=== PATIENT | male | born 1950 | race Caucasian/White ===

== ENCOUNTER → 2016-12-12 | Outpatient (CLI) | payer BC ==
[~2016-12-12] MED LIST: ASPIRIN81 MG PO; COZAAR100 MG PO; GLUCOVANCE 5-51 EACH PO; JARDIANCE25 MG PO; NORVASC10 MG PO; PRAVACHOL80 MG PO; THERA M PLUS T1 EACH PO; VENLAFAXINE H37.5 MG PO
== END | disposition short-term general hospital (02) ==
LOC: CLUROL 04:44
DX: Z48.816 Encounter for surgical aftercare following surgery on the genitourinary system (principal); Z85.46 Personal history of malignant neoplasm of prostate

== ENCOUNTER 2017-02-19 23:15 | Inpatient (IN) | payer BC ==
[~2017-02-19] VITALS: Ht 172.7 cm; Wt 91.2 kg
[2017-02-19] MEDS ORDERED: PRAVACHOL80 MG PO (23:37)
[2017-02-19] MEDS ORDERED: GLUCOVANCE 5-51 EACH PO (23:39)
[2017-02-19] MEDS ORDERED: NORVASC10 MG PO (23:40)
[2017-02-19] MEDS ORDERED: VENLAFAXINE H37.5 MG PO (23:40)
[2017-02-19] MEDS ORDERED: ASPIRIN81 MG PO (23:41)
[2017-02-19] MEDS ORDERED: COZAAR100 MG PO (23:41)
[2017-02-19] MEDS ORDERED: THERA M PLUS T1 EACH PO (23:42)
[2017-02-19] MEDS ORDERED: JARDIANCE25 MG PO (23:42)
== END 2017-02-21 17:00 | disposition short-term general hospital (02) | DRG 872 ==
LOC: ER 23:15 → IP 02-20 01:55
PROVIDERS: ADMIT Family Medicine
DX: A41.9 Sepsis, unspecified organism (principal); E11.9 Type 2 diabetes mellitus without complications; Z90.79 Acquired absence of other genital organ(s)
CPT/HCPCS: A9150; J1650; J1815; J2405; J2543; J3370; Q9963